=== PATIENT | female | born 1970 | race Caucasian/White ===

== ENCOUNTER 2017-11-04 17:34 | Emergency (ER) | payer OTHER ==
[~2017-11-04] VITALS: Ht 170.2 cm; Wt 86.4 kg
[2017-11-04 18:08] VITALS: BP 149/78; PULSE 93; RESP 18; TEMP 98.9; O2SAT 99
[2017-11-04] MEDS ORDERED: KETOROLAC TROMETHAMINE 60 MG/2 ML (IM) VIAL IM ONE (19:30)
--- NOTE | 2017-11-04 19:32 | PD ---
HPI Chief Complaint: Pain: Acute or Chronic Time Seen by Provider: 19:11 Travel History International Travel<30 days: No Contact w/Intl Traveler<30days: No Traveled to known affect area: No History of Present Illness HPI 47-year-old female with history of bilateral heel spurs presents to the emergency room for evaluation of the same. Patient is followed by a claim taker in [place] and was told that she will need surgery. She is currently on vacation. States the drive down here mixed with walking in the sand has caused an extreme exacerbation of pain in the right heel. She is requesting a cortisone injection. Pain is constant, worse with ambulation or when she puts pressure on the back of the heel. She was prescribed Mobic but it is not helping. PFSH Past Medical History ?: Not Social History Tobacco Use: No Allergies-Medications (Allergen,Severity, Reaction): Coded Allergies: Penicillins (Verified Allergy, Unknown, 11/04/17) Review of Systems Except as stated in HPI: all other systems reviewed are Neg Physical Exam Narrative GENERAL: Well-nourished, well-developed female no acute distress. Afebrile. Ambulatory. SKIN: Focused skin assessment warm/dry. No erythema or ecchymosis. HEAD: Normocephalic. EYES: No scleral icterus. No injection or drainage. NECK: Supple, trachea midline. No JVD or lymphadenopathy. CARDIOVASCULAR: Regular rate. MUSCULOSKELETAL: No cyanosis. Mild edema of the right heel. Full range of motion of bilateral lower extremities. Less than 2 second capillary refill distally. No plantar tenderness. Data Data Last Documented VS Vital Signs Date Time Temp Pulse Resp B/P (MAP) Pulse Ox O2 Delivery O2 Flow Rate FiO2 11/04/17 18:08 98.9 93 18 149/78 (101) 99 Orders Orders Splint Or Brace Apply/Monitor (11/04/17 19:23) Crutches (11/04/17 19:23) Ketorolac Inj (Toradol Inj) (11/04/17 19:30) MDM Medical Decision Making Medical Screen Exam Complete: Yes Emergency Medical Condition: Yes Medical Record Reviewed: Yes Differential Diagnosis Plantar fasciitis, heel spur, spasm, tendinitis Narrative Course 47-year-old female presents to the emergency room requesting cortisone injection for chronic bilateral heel pain from heel spurs. She is followed by a claim taker in [place]. Patient is having acute exacerbation of right heel pain after driving down from [place] and walking in the sand. Physical exam is reassuring. No evidence of infection. Right lower extremity is neurovascularly intact. Patient was informed that we do not perform cortisone injections in the emergency room. She was given IM Toradol, crutches, and postop shoe. Told to follow-up with her claim taker when she returns or return for worsening symptoms. She understands and agrees to plan per Diagnosis Primary Impression: Heel spur Qualified Codes: M77.31 - Calcaneal spur, right foot Referrals: Primary Care Physician Additional Instructions: Rest and drink plenty of fluids. Use splint and crutches as needed. Take ibuprofen with food as directed, as needed for pain. Apply ice to the affected area for 20 minutes at a time, as needed for pain and swelling. Follow-up with a claim taker. Return to the emergency room for worsening symptoms. Med/Other Pt SpecificInfo: Prescription(s) given Disposition: 01 DISCHARGE HOME Condition: Stable Latesha Tinsley Nov 04, 2017 19:32
[2017-11-04] MEDS ORDERED: IBUP1TAB7 PO (19:45)
== END 2017-11-04 19:48 | disposition home or self-care (01) ==
LOC: NED 17:34 → NEPK 19:48
DX: M77.31 Calcaneal spur, right foot (principal); Z88.0 Allergy status to penicillin
CPT/HCPCS: 96372; 99283; E0113; J1885; L3260